=== PATIENT | female | born 1960 | race Caucasian/White ===

== ENCOUNTER 2016-08-24 22:12 | Emergency (ER) | payer MEDICARE, MEDICAID ==
[2016-08-24] MEDS ORDERED: IPRATROPIUM/ALBUTEROL 3 ML VIAL NEB ONE ×3 (22:22→23:28)
[2016-08-24 22:28] VITALS: TEMP 97.8
[2016-08-24] MEDS ORDERED: IPRATROPIUM/ALBUTEROL 3 ML VIAL INH ONE (22:29)
[2016-08-24] MEDS ORDERED: SODIUM CHLORIDE 0.9% (FLUSH) 10 ML SYG IV PRN (22:29)
[2016-08-24] MEDS ORDERED: methylPREDNISolone SODIUM SUC 125 MG/2 ML VIAL IV ONE (22:35)
--- NOTE | 2016-08-24 22:41 | ED.PDOC ---
History of Present Illness - General Chief Complaint: Respiratory Problem Stated Complaint: wheezing and shortness of breath Time Seen by Provider: 08/24/16 22:22 Source: patient, family Exam Limitations: no limitations Additional Information: 4 d DYSPNEA, WORSENING. HASN'T USED HER ALBUTEROL INHALER FOR 2 D SINCE IT WAS JUST MAKING HER COUGH. PROAIR AND SYMBICORT. PMH - ASTHMA. BORDERLINE COPD. QUIT SMOKING 5 YRS AGO AND NOW VAPES. - History of Present Illness Severity: severe Activities at Onset: none Possible Cause: illness exposure Improving Factors: nothing Worsening Factors: movement Associated Symptoms: cough, wheezing Respiratory Risk Factors: other - SMOKES E-CIGARETTES. Allergies/Adverse Reactions: Allergies NO KNOWN ALLERGY Allergy (Verified 08/24/16 22:31) Home Medications: Ambulatory Orders Albuterol Inhaler [Ventolin Hfa Inhaler] 1 puff INH PRN 08/24/16 Ipratropium/Albuterol [Duoneb] 3 ml NEB BID PRN #30 vial 08/24/16 Levofloxacin [Levaquin] 750 mg PO DAILY #5 tab 08/24/16 Nebulizers [Nebulizer] 1 mis XX BID #1 mis 08/24/16 methylPREDNISolone TAB [Medrol Tab] 4 mg PO DAILY #1 tab 08/24/16 Review of Systems - Review of Systems Constitutional: Denies: chills, fever, malaise EENTM: Denies: ear pain, nose congestion, throat pain Respiratory: States: cough, short of breath, wheezing Cardiology: Denies: chest pain, palpitations Gastrointestinal/Abdominal: Denies: abdominal pain, constipation, nausea, vomiting Genitourinary: States: no symptoms reported Musculoskeletal: States: no symptoms reported Skin: States: no symptoms reported Neurological: States: no symptoms reported Endocrine: States: no symptoms reported Hematologic/Lymphatic: States: no symptoms reported All other Systems: Reviewed and Negative Past Medical History (General) - Patient Medical History Hx Seizures: No Hx Stroke: No Hx Dementia: No Hx Asthma: Yes Hx of COPD: Yes Hx Cardiac Disorders: No Hx Congestive Heart Failure: No Hx Pacemaker: No Hx Hypertension: No Hx Thyroid Disease: No Hx Diabetes: No Hx Gastroesophageal Reflux: No Hx Renal Disease: No Hx Cancer: No Hx of HIV: No Hx Hepatitis C: No Hx MRSA: No Surgical History: other - Vaccination History Hx Tetanus, Diphtheria Vaccination: No Hx Influenza Vaccination: No Hx Pneumococcal Vaccination: No Immunizations Up to Date: No - Social History Hx Tobacco Use: No Hx Alcohol Use: Yes - occ Hx Substance Use: No Hx Substance Use Treatment: No Hx Depression: No - Female History Patient is a Female of Child Bearing Age (10 -59 yrs old): No Patient : No Family Medical History - Family History Father Family History: Unknown Physical Exam - Physical Exam General Appearance: Alert, Obvious distress Eyes, Ears, Nose, Throat Exam: PERRL/EOMI, normal ENT inspection, TMs normal, pharynx normal Neck: non-tender, full range of motion, supple, other - no jvd. no bruit. Respiratory: chest non-tender, respiratory distress, rhonchi, wheezing - BL WHEEZING AND RONCHI IN ALL LUNG KATE. 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 STILL QUITE WHEEZY BL THUS GIVING 3RD TX. CBC, CMP, EKG, BNP RAPID FLU NEG. CXR SHOWS R BRONCHITIS - GAVE LEVAQUIN 750 PO. ASTHMA EXACERBATION - GAVE SOLUMEDROL IV 125. ACUTE HYPOXIA, DYSPNEA, ACUTE RESPIRATORY DISTRESS (IMPROVED W/ ER THERAPY), COUGH, WHEEZE. PT WOULD LIKE TO TRY GOING HOME AND THIS IS APPROPRIATE SINCE SHE HAS IMPROVED WITH THERAPY. RX'ING MEDROL DOSE PACK, LEVA-PACK, DUONEBS AND NEB MACHINE. CLOSE F/U W/ PCP. Departure - Departure Clinical Impression: Asthma with exacerbation, Respiratory distress, acute, Hypoxia, Dyspnea, Cough , Acute bronchitis, Wheezes Disposition: Discharge to Home or Self Care Condition: Good Departure Forms: ED Discharge - Pt. Copy, Patient Portal Self Enrollment Instructions: DI for Asthma -- Adult Diet: resume usual diet Activity: increase activity as tolerated Referrals: Aliya Huffman NP [Primary Care Provider] - 1-2 Days Prescriptions: Ipratropium/Albuterol [Duoneb] 3 ml NEB BID PRN #30 vial PRN Reason: Shortness Of Breath/Wheezing Levofloxacin [Levaquin] 750 mg PO DAILY #5 tab methylPREDNISolone TAB [Medrol Tab] 4 mg PO DAILY #1 tab Nebulizers [Nebulizer] 1 mis XX BID #1 mis Home Medications: Ambulatory Orders Albuterol Inhaler [Ventolin Hfa Inhaler] 1 puff INH PRN 08/24/16 Ipratropium/Albuterol [Duoneb] 3 ml NEB BID PRN #30 vial 08/24/16 Levofloxacin [Levaquin] 750 mg PO DAILY #5 tab 08/24/16 Nebulizers [Nebulizer] 1 mis XX BID #1 mis 08/24/16 methylPREDNISolone TAB [Medrol Tab] 4 mg PO DAILY #1 tab 08/24/16 Additional Instructions: Please try to decrease the nicotine in the vaporizers to wean off completely. The vapes still contain dangerous chemicals. Please see your doctor tomorrow to re-assess how you are doing. Return to the ER if you breathing should worsen, in which case you may need to be admitted to the hospital.
--- NOTE | 2016-08-24 22:56 | RAD ---
EXAM DESCRIPTION: Chest,1 View CLINICAL HISTORY: 56 years, Female, sob COMPARISON: Chest x-ray dated 06/18/2009. FINDINGS: A single frontal chest radiograph was performed. The lungs are well expanded and clear aside from slight peribronchial cuffing in the RIGHT lower lobe. The costophrenic sulci are sharp. The cardiac silhouette, hilar regions, trachea, soft tissues and bony structures are unremarkable. IMPRESSION: Possible RIGHT lower lobe bronchitis. Electronically signed by: Michelle Scott MD 08/24/2016 10:56 PM CDT
[2016-08-24] MEDS ORDERED: levoFLOXacin 500 MG TAB PO ONE (23:27)
[2016-08-25 00:10] VITALS: BP 104/60; O2SAT 92
== END 2016-08-25 00:09 | disposition home or self-care (01) ==
LOC: ER 22:12
DX: J44.1 Chronic obstructive pulmonary disease with (acute) exacerbation (principal); J45.901 Unspecified asthma with (acute) exacerbation; J20.9 Acute bronchitis, unspecified; J44.0 Chronic obstructive pulmonary disease with (acute) lower respiratory infection; R09.02 Hypoxemia; Z79.899 Other long term (current) drug therapy
CPT/HCPCS: 36415; 71010; 80053; 83880; 85025; 87502; 94640; 94760; J2930; J7620

== ENCOUNTER 2017-01-12 18:24 | Emergency (ER) | payer MEDICARE, MEDICAID ==
[2017-01-12 18:47] VITALS: TEMP 98
--- NOTE | 2017-01-12 19:48 | ED.PDOC ---
History of Present Illness - General Chief Complaint: Bite: Animal/Insect/Human Stated Complaint: redness right elbow/wheezing Time Seen by Provider: 01/12/17 19:25 Source: patient Exam Limitations: no limitations - History of Present Illness Initial Comments: Kaylen Smith 56 y/o female stated she felt pain on movement on her right elbow the last 3 days stating she fell 3 weeks ago landing on her elbow right but got better and since she is legally blind her son look at it and noted redness/ slight swelling.Also her symbicort was not refilled and today with cough and wheezing. Timing/Duration: other - see hpi Improving Factors: rest Worsening Factors: movement Associated Symptoms: denies symptoms Allergies/Adverse Reactions: Allergies NO KNOWN ALLERGY Allergy (Verified 01/12/17 18:47) Home Medications: Ambulatory Orders Albuterol Inhaler [Ventolin Hfa Inhaler] 1 puff INH PRN 08/24/16 Ipratropium/Albuterol [Duoneb] 3 ml NEB BID PRN #30 vial 08/24/16 Levofloxacin [Levaquin] 750 mg PO DAILY #5 tab 08/24/16 Nebulizers [Nebulizer] 1 mis XX BID #1 mis 08/24/16 methylPREDNISolone TAB [Medrol Tab] 4 mg PO DAILY #1 tab 08/24/16 Albuterol Sulfate [Proair Hfa] 2 puff INH Q6H PRN #1 01/12/17 Budesonide-Formoterol Fumarate [Symbicort] 2 puff IN BID #1 aer 01/12/17 Clindamycin HCl 300 mg PO BID #30 cap 01/12/17 Review of Systems - Review of Systems Constitutional: States: no symptoms reported EENTM: States: no symptoms reported Respiratory: States: see HPI Cardiology: States: no symptoms reported Gastrointestinal/Abdominal: States: no symptoms reported Genitourinary: States: no symptoms reported Musculoskeletal: States: see HPI Skin: States: no symptoms reported Past Medical History (General) - Patient Medical History Hx Seizures: No Hx Stroke: No Hx Dementia: No Hx Asthma: Yes Hx of COPD: Yes Hx Cardiac Disorders: No Hx Congestive Heart Failure: No Hx Pacemaker: No Hx Hypertension: No Hx Thyroid Disease: No Hx Diabetes: No Hx Gastroesophageal Reflux: No Hx Renal Disease: No Hx Cancer: No Hx of HIV: No Hx Hepatitis C: No Hx MRSA: No Hx Other PMH: Yes - Stickler syndrome Surgical History: other - both eyes ,chin reconstuction - Vaccination History Hx Tetanus, Diphtheria Vaccination: No Hx Influenza Vaccination: Yes Hx Pneumococcal Vaccination: No - Social History Hx Tobacco Use: No Hx Alcohol Use: No - occ Hx Substance Use: No Hx Substance Use Treatment: No Hx Depression: No - Activities of Daily Living Patient Lives Alone: No - family Hospice Agency (if applicable):: None - Female History Patient is a Female of Child Bearing Age (10 -59 yrs old): No Patient : No Family Medical History - Family History Father Hx Family;Other: Multiple family members with Sticklers Syndrome Physical Exam - Physical Exam General Appearance: Alert, No apparent distress Eye Exam: bilateral other - legally blind both eyes Ears, Nose, Throat: hearing grossly normal, normal ENT inspection Neck: non-tender, full range of motion Respiratory: no respiratory distress, wheezing, other - speaks in fullsentences Cardiovascular/Chest: normal peripheral pulses, regular rate, rhythm, no murmur Peripheral Pulses: radial,right: 1+, radial,left: 1+ Gastrointestinal/Abdominal: normal bowel sounds, non tender, soft Back Exam: normal inspection, no CVA tenderness Extremity: no pedal edema, no calf tenderness Skin Exam: normal color, warm/dry, rash - erythematous rash right elbow Progress - Progress Progress: 01/12/17 20:18 Vital Signs - 8 hr 01/12/17 18:40 Temperature 98.0 F Pulse Rate [ 83 pulse ox] Respiratory 18 Rate Blood Pressure 111/79 [left arm] O2 Sat by Pulse 93 L Oximetry Departure - Departure Clinical Impression: Abrasion of elbow, right, infected Qualifiers: Encounter type: initial encounter Qualified Code(s): S50.311A - Abrasion of right elbow, initial encounter Asthma Qualifiers: Asthma severity: moderate persistent Asthma complication type: with acute exacerbation Qualified Code(s): J45.41 - Moderate persistent asthma with (acute ) exacerbation Time of Disposition: 20:19 Disposition: Discharge to Home or Self Care Condition: Good Departure Forms: ED Discharge - Pt. Copy, Patient Portal Self Enrollment Referrals: Aliya Huffman NP [Primary Care Provider] - 1-2 Weeks Prescriptions: Albuterol Sulfate [Proair Hfa] 2 puff INH Q6H PRN #1 PRN Reason: Difficulty Breathing Budesonide-Formoterol Fumarate [Symbicort] 2 puff IN BID #1 aer Clindamycin HCl 300 mg PO BID #30 cap Home Medications: Ambulatory Orders Albuterol Inhaler [Ventolin Hfa Inhaler] 1 puff INH PRN 08/24/16 Ipratropium/Albuterol [Duoneb] 3 ml NEB BID PRN #30 vial 08/24/16 Levofloxacin [Levaquin] 750 mg PO DAILY #5 tab 08/24/16 Nebulizers [Nebulizer] 1 mis XX BID #1 mis 08/24/16 methylPREDNISolone TAB [Medrol Tab] 4 mg PO DAILY #1 tab 08/24/16 Albuterol Sulfate [Proair Hfa] 2 puff INH Q6H PRN #1 01/12/17 Budesonide-Formoterol Fumarate [Symbicort] 2 puff IN BID #1 aer 01/12/17 Clindamycin HCl 300 mg PO BID #30 cap 01/12/17 Additional Instructions: Warm moist pack right elbow 20 minutes3 x a a day during waking hours only for 3 days;Return ro [facility] room if not better in 3 days
[2017-01-12] MEDS ORDERED: CLINDAMYCIN PHOSPHATE 150 MG/ML VIAL IM ONE (19:53)
[2017-01-12] MEDS ORDERED: predniSONE 20 MG TAB PO ONE (19:53)
[2017-01-12] MEDS ORDERED: CLINDAMYCIN HCL CAP 150 MG CAP PO ONE (19:53)
[2017-01-12] MEDS ORDERED: TETANUS,DIPHTHERIA,PERTUSSIS 1 EA SYG IM ONE (19:53)
[2017-01-12] MEDS ORDERED: IPRATROPIUM/ALBUTEROL 3 ML VIAL NEB ONE (19:55)
--- NOTE | 2017-01-12 20:21 | RAD ---
EXAM DESCRIPTION: Elbow,Right 2 Views CLINICAL HISTORY: 56 years ,Female pain COMPARISON: None. TECHNIQUE: RIGHT elbow, Three view FINDINGS: No acute fractures or dislocations are identified. No osseous destructive lesions. Mild degenerative change at the ulna. No evidence of joint effusion. IMPRESSION: No acute fractures are identified. If symptoms persist, followup is recommended in 7-10 days. Electronically signed by: Desirae Collier 01/12/2017 8:20 PM CDT
[2017-01-13 01:09] VITALS: BP 109/75
[2017-01-13 01:12] VITALS: O2SAT 94
== END 2017-01-12 20:15 | disposition home or self-care (01) ==
LOC: ER 18:24
DX: S50.311A Abrasion of right elbow, initial encounter (principal); L08.9 Local infection of the skin and subcutaneous tissue, unspecified; J45.41 Moderate persistent asthma with (acute) exacerbation; H54.8 Legal blindness, as defined in USA; J44.9 Chronic obstructive pulmonary disease, unspecified; Q89.8 Other specified congenital malformations; Z23 Encounter for immunization; Z79.899 Other long term (current) drug therapy; W19.XXXA Unspecified fall, initial encounter; Y92.9 Unspecified place or not applicable
CPT/HCPCS: 73070; 90715; 94640; J3490; J7512; J7620

== ENCOUNTER → 2017-08-11 | Outpatient (CLI) | payer MEDICARE, MEDICAID | LOC: YCFC.O 13:43 | PROVIDERS: ATTEND Nurse Practitioner Family | DX: Z00.00 Encounter for general adult medical examination without abnormal findings (principal); Z13.220 Encounter for screening for lipoid disorders; E07.9 Disorder of thyroid, unspecified; Z13.1 Encounter for screening for diabetes mellitus ==

== ENCOUNTER → 2018-06-15 | Outpatient (CLI) | payer MEDICARE, MEDICAID ==
--- NOTE | 2018-06-16 15:58 | MAM ---
EXAM DESCRIPTION: 3D Screening BILATERAL : Digital Mammography. CLINICAL HISTORY: 57 years Female SCREENING . No complaints or personal history of breast cancer. No family history of breast cancer. Childbirth. Postmenopausal 2 years. No HRT. Prior benign left breast biopsy. Lifetime risk of developing breast cancer (Tyrer-Cuzick model)(%): 5.2. COMPARISON: Bilateral axillary lymph nodes. Bilateral solitary microcalcifications.. No prior reports available. TECHNIQUE: Bilateral CC and MLO projection full-field images, digital tomosynthesis mammographic technique. Bilateral digital 2-D full-field MLO images. CAD not available for tomosynthesis or 2-D images. FINDINGS: The breast parenchymal density pattern is: Scattered areas of fibroglandular density. No skin thickening or nipple retraction. . Bilateral axillary lymph nodes. Bilateral solitary microcalcifications. Bilateral intramammary lymph nodes.. No new focal, stellate mass or density, focal asymmetry , and no suspicious microcalcifications bilaterally. Stable mammograms compared to prior study. Taking into account, differences in mammographic technique. IMPRESSION: Benign exam. BIRAD CATEGORY: 2 BENIGN FINDINGS. RECOMMENDATIONS: FOLLOW UP: Routine digital bilateral mammographic screening, one year interval from June 2018. Written communication explaining the IMPRESSION and follow-up, will be mailed to the patient and referring health care provider. According to the [employer], yearly mammograms are recommended starting at age 40 and continuing as long as a woman is in good health. Any breast change noted on a breast self-exam should be reported promptly to the patient's healthcare provider. Breast MRI is recommended for women with an approximately 20-25% or greater lifetime risk of breast cancer, including women with a strong family history of breast or ovarian cancer and women who have been treated for Hodgkin's disease. A negative mammographic report should not delay tissue diagnosis in patients with significant clinical history or physical findings. Extremely dense breast tissue limits the sensitivity of digital mammography. Electronically signed by: Tashi Kahn MD 06/16/2018 3:57 PM [employer]
== END ==
LOC: MAMMO 14:06
PROVIDERS: ATTEND Nurse Practitioner Family
DX: Z12.31 Encounter for screening mammogram for malignant neoplasm of breast (principal)

== ENCOUNTER → 2018-06-30 | Outpatient (CLI) | payer MEDICARE, MEDICAID ==
--- NOTE | 2018-06-30 11:41 | RAD ---
EXAM DESCRIPTION: Chest,2 Views CLINICAL HISTORY: COPD COMPARISON: Previous study August 24, 2016 TECHNIQUE: PA/lateral FINDINGS: On the previous study, right paracardiac infiltrate was present with obscuration of the right heart margin. This pneumonic infiltrate appears to have improved although upper right heart margin is seen but the lower remains obscured. Lateral view shows persistent density overlying the heart consistent with volume loss or infiltrate in the right middle lobe. Heart size is normal with normal pulmonary vascularity. No pleural effusion or pneumothorax. Left lung is clear. No infiltrate in the lower lobes on the lateral view. 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 IMPRESSION: Infiltrate or partial volume loss in the right middle lobe, improved compared to the previous study. Electronically signed by: Quoc Ponce MD 06/30/2018 11:40 AM [facility]
== END ==
LOC: YCFC.O 06-29 16:43 → LAB.O 07:36
PROVIDERS: ATTEND Nurse Practitioner Family
DX: Z00.00 Encounter for general adult medical examination without abnormal findings (principal); Z13.0 Encounter for screening for diseases of the blood and blood-forming organs and certain disorders involving the immune mechanism; J44.9 Chronic obstructive pulmonary disease, unspecified; R53.83 Other fatigue

== ENCOUNTER → 2018-12-22 | Outpatient (CLI) | payer MEDICARE, MEDICAID ==
--- NOTE | 2018-12-22 09:11 | RAD ---
EXAM DESCRIPTION: Shoulder,Left 2 or More Views CLINICAL HISTORY: Pain in shoulder COMPARISON: None Available. TECHNIQUE: Two views of the left shoulder. FINDINGS: There is adequate internal and external rotation. There is no fracture or dislocation. Degenerative changes at the left AC joint. No focal bone lesion. IMPRESSION: Moderate degenerative changes of the left acromioclavicular joint. Electronically signed by: Quoc Ponce MD 12/22/2018 9:09 AM CDT
== END ==
LOC: YCFC.O 08:47
PROVIDERS: ATTEND Nurse Practitioner Family
DX: M19.012 Primary osteoarthritis, left shoulder (principal)

== ENCOUNTER → 2020-04-21 | Outpatient (CLI) | payer MEDICARE, MEDICAID | LOC: YCFC.O 16:22 | PROVIDERS: ATTEND Nurse Practitioner | DX: Z03.89 Encounter for observation for other suspected diseases and conditions ruled out (principal); Z20.828 Contact with and (suspected) exposure to other viral communicable diseases; R35.0 Frequency of micturition ==